=== PATIENT | female | born 1985 | race Caucasian/White ===

== ENCOUNTER → 2017-07-11 | Outpatient (CLI) | payer OTHER ==
--- NOTE | 2017-07-11 11:21 | DIAGNOSTIC IMAGING REPORT ---
SOFT TISS HEAD/NECK-THYROID CLINICAL HISTORY: 32 years-old Female presenting with thyromegaly. TECHNIQUE: Real-time grayscale and color Doppler ultrasound imaging of the thyroid and base of the neck was performed. COMPARISON: 02/07/2013. FINDINGS: Right lobe: Normal echogenicity and echotexture. The right lobe of the thyroid measures 5.1 x 1.7 x 1.1 cm. No parenchymal hyperemia. No nodules. Left lobe: Normal echogenicity and echotexture. The left lobe of the thyroid measures 4.6 x 1.8 x 1.2 cm. No parenchymal hyperemia. Index nodule(s) enumerated below: 1. Upper pole well-circumscribed hypoechoic nodule measuring 0.4 x 0.4 x 0.2 cm (intermediate suspicion). Isthmus: The isthmus measures 3 mm in thickness. No parenchymal hyperemia. No nodules. IMPRESSION: Subcentimeter intermediate suspicion left thyroid lobe nodule. Attention on follow-up. Electronically signed by: Piyush Tao M.D. 07/11/2017 11:20 AM Dictated Date/Time: 07/11/2017 11:18 AM
== END | disposition home or self-care (01) ==
LOC: C.ULTR 10:34
PROVIDERS: ATTEND Family Medicine
DX: E01.0 Iodine-deficiency related diffuse (endemic) goiter (principal); R94.6 Abnormal results of thyroid function studies

== ENCOUNTER → 2017-07-21 | Outpatient (CLI) | payer OTHER | END | disposition home or self-care (01) | LOC: C.LAB 13:43 | PROVIDERS: ATTEND Obstetrics & Gynecology | DX: Z32.01 Encounter for pregnancy test, result positive (principal) ==